=== PATIENT | female | born 1960 | race Caucasian/White ===

== ENCOUNTER 2016-11-12 10:17 | Outpatient (CLI) | payer MEDICARE ==
[2016-11-12] MEDS ORDERED: IOPAMIDOL-300 100 ML VIAL IVP ONE (17:50)
[2016-11-12] MEDS ORDERED: IOPAMIDOL-300 50 ML VIAL PO ONE (17:50)
== END 2016-11-12 10:18 | disposition home or self-care (01) ==
DX: N20.0 Calculus of kidney (principal); R10.13 Epigastric pain
CPT/HCPCS: 74160; Q9967

== ENCOUNTER 2019-09-25 09:00 | Outpatient (CLI) | payer MEDICARE ==
--- NOTE | 2019-09-25 09:59 | Mammography Report ---
Reason: LT BREAST PAIN Procedure Date: 09/25/2019 Accession Number: [id number] / [id number] Procedure: LUIZ - Diagnostic Dig Bilat CPT Code: Final Report FULL RESULT: EXAM: Diagnostic Dig Bilat DATE: 09/25/2019 9:51 AM CLINICAL HISTORY: Diagnostic examination. Left breast pain. TECHNIQUE: (B) - Bilateral CC and MLO views were obtained. Left ML images are obtained. All images are obtained in standard technique and implant displaced technique. Additionally, a left spot MLO views obtained. COMPARISON: 01/09/2011. PARENCHYMAL PATTERN: (A) - The breast(s) demonstrate(s) scattered fibroglandular densities. FINDINGS: Intact-appearing bilateral saline type prepectoral implants are noted. No mammographic finding is made in the area identified as painful. There are no suspicious masses, calcifications, or areas of distortion. IMPRESSION: Benign findings. BI-RADS category 2. RECOMMENDATION: (ANNUAL) - Recommend routine annual screening mammography. BI-RADS CATEGORY: (2) - Benign Findings. STANDARD QUALIFYING STATEMENTS: 1. This examination was not reviewed with the aid of Computer-Aided Detection (CAD). 2. A negative or benign imaging report should not preclude biopsy if clinically suspicious findings are present. 3. Dense breasts may obscure an underlying neoplasm. 4. This examination was reviewed with the aid of 3D breast imaging (tomosynthesis).
== END 2019-09-25 09:01 | disposition home or self-care (01) ==
LOC: DI 09:00
PROVIDERS: ATTEND Physician Assistant Medical
DX: N64.4 Mastodynia (principal); Z98.82 Breast implant status
CPT/HCPCS: 77066

== ENCOUNTER 2022-08-30 10:14 | Outpatient (CLI) | payer MEDICARE ==
--- NOTE | 2022-08-30 10:51 | XRAY Report ---
PROCEDURE: Chest 2 View X-Ray INDICATIONS: COUGH TECHNIQUE: 2 views of the chest were acquired. COMPARISON: 07/30/2015 FINDINGS: Surgical changes and devices: None. Lungs and pleura: No pleural effusions or pneumothorax. Lungs are clear. Mediastinum: Mediastinal contours are normal. Heart size is normal. Bones and chest wall: No suspicious bony abnormalities. Soft tissues appear unremarkable. IMPRESSION: No acute cardiopulmonary process demonstrated radiographically. Reviewed by: Ru Marx MD on 08/30/2022 10:49 AM [facility] Approved by: Ru Marx MD on 08/30/2022 10:49 AM [facility] Station ID: [id number]
== END 2022-08-30 10:15 | disposition home or self-care (01) ==
LOC: DI 10:14
PROVIDERS: ATTEND Student in an Organized Health Care Education/Training Program
DX: R05.9 Cough, unspecified (principal)

== ENCOUNTER 2024-03-16 13:51 | Outpatient (CLI) | payer MEDICARE ==
--- NOTE | 2024-03-17 13:23 | DEXA Report ---
PROCEDURE: Dexa Spine and/or Hip INDICATIONS: MENOPAUSAL TECHNIQUE: Dual energy x-ray absorptiometry (DXA) was performed on a [employer] System. Regions measur ed are the AP Spine, femoral neck, and if needed forearm. COMPARISON: None available. FINDINGS: Lumbar Spine: Bone Mineral Density: 1.104 g/cm/cm,T score: -0.5. Left Femoral Neck: Bone Mineral Density: 0.681 g/cm/cm, T score: -2.6. Left Hip: Bone Mineral Density: 0.668 g/cm/cm,T score: -2.7. (T score greater or equal to -1.0: NORMAL) (T score from -1.1 to -2.4: OSTEOPENIA) (T score less than or equal to -2.5 to: OSTEOPOROSIS) Impression: By WHO criteria, this patient has osteoporosis. Patients with diagnosis of osteoporosis or osteopenia should have regular bone mineral density assess ment. For those eligible for Medicare, routine testing is allowed once every 2 years. Testing frequ ency can be increased for patients who have rapidly progressing disease or for those who are receivin g medical therapy to restore bone mass. Reviewed by: Casandra Hinkle MD on 03/17/2024 1:22 PM PDT Approved by: Casandra Hinkle MD on 03/17/2024 1:22 PM PDT Station ID: [id number]
== END 2024-03-16 13:52 | disposition home or self-care (01) ==
LOC: DI 13:51
PROVIDERS: ATTEND Internal Medicine
DX: M81.0 Age-related osteoporosis without current pathological fracture (principal)